=== PATIENT | male | born 1965 | race Caucasian/White ===

== ENCOUNTER 2019-05-22 17:21 | Emergency (ER) | payer OTHER ==
[~2019-05-22] VITALS: Ht 170.2 cm; Wt 127.0 kg
[2019-05-22 17:25] VITALS: BP_SYST 129
--- NOTE | 2019-05-22 17:25 | NUR ---
Patient triaged and placed in waiting room. VSS and patient appears in no acute distress at this time. Accompanied by FAMILY, awaiting available bed, and MD notified of need for MSE.
--- NOTE | 2019-05-22 18:06 | NUR ---
BROUGHT BACK TO BED #3 AND TRIAGED. REPORT GIVEN TO DOROTA
--- NOTE | 2019-05-22 18:11 | NUR ---
Stefany jenkins in ED - 05/22/19 at [address] BROWER AT BEDSIDE FOR EVALUATION
--- NOTE | 2019-05-22 18:11 | NUR ---
DR TAMAYO AT BEDSIDE FOR EVALUATION
[2019-05-22] MEDS ORDERED: MORPHINE 4 MG/ML INJ. SYRINGE IVP ONE (18:15)
[2019-05-22] MEDS ORDERED: DIPHENHYDRAMINE INJ 50 MG/ML VIAL IVP ONE (18:15)
--- NOTE | 2019-05-22 18:20 | NUR ---
patient was bib family member cc of left lower leg cellulitis, edematous. pain when moving. anxious. elevated heart rate. no s/s of distress. informed about the poc. blood draw and iv access placed. pain medication on board. will monitor.
[2019-05-22 18:37] LABS: BASOPHILS # (AUTO) 0.1 K/uL (0.0-0.2); BASOPHILS % (AUTO) 0.5 % (0.0-2.0); EOSINOPHILS # (AUTO) 0.1 K/uL (0.0-0.4); HEMATOCRIT 37.7 % (36-54); HEMOGLOBIN 13.2 g/dL (14.0-18.0); LYMPHOCYTES % (AUTO) 10.2 % (20.5-51.5); MEAN CORPUSCULAR HEMOGLOBIN 30 pg (27-31); MEAN CORPUSCULAR HGB CONC 35 % (32-36); MEAN CORPUSCULAR VOLUME 84 fL (79.0-98.0); MONOCYTES # (AUTO) 0.8 K/uL (0.0-1.0); MONOCYTES % (AUTO) 7.7 % (1.7-9.3); NEUTROPHILS # (AUTO) 8.2 K/uL (1.8-7.7); NEUTROPHILS % (AUTO) 80.6 % (40.0-70.0); PLATELET COUNT (AUTO) 210 K/uL (130-430); RED BLOOD CELL COUNT(AUTO) 4.49 MIL/uL (4.2-6.2); RED CELL DISTRIBUTION WIDTH 13.8 % (9.0-15.0); WHITE BLOOD COUNT (AUTO) 10.2 K/uL (4.8-10.8)
[2019-05-22 18:46] LABS: CALCIUM 8.3 mg/dL (8.4-11.0); CREATININE 1.15 mg/dL (0.55-1.30); POTASSIUM 3.7 mmol/L (3.5-5.1)
[2019-05-22 18:50] LABS: INR 1.1 (0.80-1.20); PROTHROMBIN TIME 11.1 SECS (9.5-12.5)
[2019-05-22 18:51] LABS: ALBUMIN 3.4 g/dL (3.4-4.8); TOTAL BILIRUBIN 0.9 mg/dL (0.0-1.0)
[2019-05-22] MEDS ORDERED: LEVOFLOXACIN 500 MG TABLET PO ONE (19:15)
[2019-05-22] MEDS ORDERED: SULFAMETHOXAZOLE/TRIMETHOPR DS 1 TABLET PO ONE (19:15)
[2019-05-22] MEDS ORDERED: BACITRACIN 1 GM OINT TP ONE ×2 (19:15→19:21)
[2019-05-22 19:39] VITALS: BP_SYST 128
--- NOTE | 2019-05-22 19:39 | NUR ---
Patient given written and verbal discharge instructions and verbalizes understanding. ER MD Dr. Johnson discussed with patient the results and treatment provided. Patient in stable condition. ID arm band removed. Rx of norco, bactrim and levaquin given. Patient educated on pain management and to follow up with PMD. Pain Scale 0/10. Opportunity for questions provided and answered. Medication side effect fact sheet provided.
== END 2019-05-22 19:39 | disposition home or self-care (01) ==
LOC: SED 17:21
DX: L03.116 Cellulitis of left lower limb (principal); I87.2 Venous insufficiency (chronic) (peripheral); F11.10 Opioid abuse, uncomplicated; E07.9 Disorder of thyroid, unspecified; Z88.0 Allergy status to penicillin; Z59.0 Homelessness
CPT/HCPCS: 36415; 80053; 83605; 83880; 84484; 85025; 85610; 87040; 93005; 96374; 96375; 99284; J1200; J2270